=== PATIENT | female | born 1990 | race Asian ===

== ENCOUNTER 2018-07-12 15:43 | Outpatient (CLI) | payer BC ==
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
== END 2018-07-12 15:44 | disposition home or self-care (01) ==
LOC: TBSIIMAG 15:43
PROVIDERS: ATTEND Neurological Surgery
DX: M48.56XA Collapsed vertebra, not elsewhere classified, lumbar region, initial encounter for fracture (principal)
CPT/HCPCS: 72100